=== PATIENT | female | born 1955 | race Caucasian/White ===

== ENCOUNTER 2016-06-03 09:34 | Outpatient (CLI) | payer BC ==
[~2016-06-03 09:34] MED LIST: LEVO500T20 PO
== END 2016-06-03 18:45 | disposition home or self-care (01) ==
LOC: SUS 09:34
PROVIDERS: ATTEND Specialist
DX: N18.3 Chronic kidney disease, stage 3 (moderate) (principal); N28.1 Cyst of kidney, acquired
CPT/HCPCS: 76770

== ENCOUNTER 2016-07-13 17:33 | Inpatient (IN) | payer BC ==
[~2016-07-13] VITALS: Ht 170.2 cm; Wt 100.2 kg
[2016-07-13] MEDS ORDERED: NACL 0.9% 1,000 ML IV ONE (17:37)
[2016-07-13] MEDS ORDERED: ONDANSETRON HCL 4 MG/2 ML VIAL IVP ONE (17:45)
[2016-07-13] MEDS ORDERED: KETOROLAC TROMETHAMINE 30 MG VIAL IVP ONE (17:45)
[2016-07-13 17:49] VITALS: BP_SYST 158
[2016-07-13 18:06] LABS: HEMATOCRIT 48.2 % (36-48); HEMOGLOBIN 16.1 g/dL (12.0-16.0); MEAN CORPUSCULAR HEMOGLOBIN 31 pg (27-31); MEAN CORPUSCULAR HGB CONC 34 % (32-36); MEAN CORPUSCULAR VOLUME 93 fL (79.0-98.0); PLATELET COUNT (AUTO) 254 K/uL (130-430); RED BLOOD CELL COUNT(AUTO) 5.19 MIL/uL (4.2-6.2); RED CELL DISTRIBUTION WIDTH 14.6 % (9.0-15.0); WHITE BLOOD COUNT (AUTO) 16.1 K/uL (4.8-10.8)
[2016-07-13 18:11] LABS: CALCIUM 9.1 mg/dL (8.4-11.0); CREATININE 1.57 mg/dL (0.55-1.30); POTASSIUM 3.4 mmol/L (3.5-5.1)
[2016-07-13 18:16] LABS: ALBUMIN 3.3 g/dL (3.4-4.8); TOTAL BILIRUBIN 0.3 mg/dL (0.0-1.0); TOTAL PROTEIN, SERUM 7.1 g/dL (6.4-8.3)
[2016-07-13 18:23] LABS: ATYPICAL LYMPHOCYTES % 0 % (0-0); BAND % (MANUAL) 0 % (0-6); BASOPHILS % (MANUAL) 0 % (0-2); EOSINOPHILS % (MANUAL) 0 % (0-7); LYMPHOCYTES % (MANUAL) 14 % (20-46); MONOCYTES % (MANUAL) 4 % (0-11)
[2016-07-13] MEDS ORDERED: NACL 0.9% 2,000 ML IV ONE (18:45)
[2016-07-13 19:00] VITALS: BP_SYST 127
[2016-07-13] MEDS ORDERED: LEVOFLOXACIN 500 MG/D5W 100 ML IV ONE (19:00)
[2016-07-13 19:24] VITALS: BP_SYST 127
[2016-07-13 19:25] VITALS: BP_SYST 127
[2016-07-13 19:46] LABS: BILIRUBIN,URINE NEGATIVE (NEGATIVE); BLOOD, URINE 3+ (NEGATIVE); CLARITY/URINE CLOUDY (CLEAR); COLOR,URINE RED (YELLOW); GLUCOSE,URINE NEGATIVE (NEGATIVE); KETONES,URINE NEGATIVE (NEGATIVE); LEUKOCYTE ESTERASE ,URINE NEGATIVE (NEGATIVE); NITRITE, URINE NEGATIVE (NEGATIVE); PROTEIN URINE 1+ (NEGATIVE); UROBILINOGEN,URINE 0.2 (0.2-1.0)
[2016-07-13 19:50] LABS: BACTERIA,URINE None Seen /HPF (None Seen); MUCUS,URINE None Seen /LPF (None Seen); RBC,URINE >100 /HPF (0-3); WBC,URINE 0-3 /HPF (0-3)
[2016-07-13] MEDS ORDERED: ACETAMINOPHEN 325 MG TABLET PO PRN (21:45)
[2016-07-13] MEDS ORDERED: MORPHINE 2 MG/ML INJ. SYRINGE IVP PRN (21:45)
[2016-07-13] MEDS ORDERED: MORPHINE 4 MG/ML INJ. SYRINGE IVP PRN (21:45)
[2016-07-13] MEDS ORDERED: PIPERACILLIN/TAZO 3.375/DEX-IS 50 ML IV SCH (21:45)
[2016-07-13] MEDS ORDERED: ZOSYN (PIPERACILLIN/TAZO) 3.375 GM in DEX-ISO (50ml) IV SCH (22:30)
[2016-07-13] MEDS: NACL 0.9% 1,000 ML IV SCH (22:59)
[2016-07-13] MEDS ORDERED: DIPHENHYDRAMINE INJ 50 MG/ML VIAL IVP ONE (23:45)
[2016-07-14] MEDS ORDERED: PIPERACILLIN/TAZOBACTAM 2.25 GM VIAL IV ONE (00:19)
[2016-07-14] MEDS: PIPERACILLIN/TAZO 2.25G/DEX-IS 50 ML IV SCH ×4 (00:32→17:32)
[2016-07-14 01:10] VITALS: BP_SYST 126
[2016-07-14 04:00] VITALS: BP_SYST 128
[2016-07-14 07:22] LABS: HEMATOCRIT 38.5 % (36-48); HEMOGLOBIN 13.4 g/dL (12.0-16.0); LYMPHOCYTES # (AUTO) 1.6 K/uL (1.0-5.5); LYMPHOCYTES % (AUTO) 13.6 % (20.5-51.5); MEAN CORPUSCULAR HEMOGLOBIN 32 pg (27-31); MEAN CORPUSCULAR HGB CONC 35 % (32-36); MEAN CORPUSCULAR VOLUME 92 fL (79.0-98.0); MONOCYTES # (AUTO) 0.6 K/uL (0.0-1.0); MONOCYTES % (AUTO) 5.5 % (1.7-9.3); NEUTROPHILS # (AUTO) 9.5 K/uL (1.8-7.7); NEUTROPHILS % (AUTO) 80.9 % (40.0-70.0); PLATELET COUNT (AUTO) 190 K/uL (130-430); RED BLOOD CELL COUNT(AUTO) 4.18 MIL/uL (4.2-6.2); RED CELL DISTRIBUTION WIDTH 14.9 % (9.0-15.0); WHITE BLOOD COUNT (AUTO) 11.7 K/uL (4.8-10.8)
[2016-07-14 07:36] LABS: ALBUMIN 2.5 g/dL (3.4-4.8); CREATININE 1.57 mg/dL (0.55-1.30); POTASSIUM 3.6 mmol/L (3.5-5.1); TOTAL BILIRUBIN 0.7 mg/dL (0.0-1.0); TOTAL PROTEIN, SERUM 5.7 g/dL (6.4-8.3)
[2016-07-14 08:00] VITALS: BP_SYST 132
[2016-07-14 08:32] LABS: INR 0.9 (0.8-1.2)
[2016-07-14] MEDS ORDERED: ONDANSETRON HCL 4 MG/2 ML VIAL IVP PRN (08:45)
[2016-07-14] MEDS ORDERED: ALBUTEROL SULFATE 0.083% 2.5 MG/3 ML VIAL.NEB INH PRN (08:45)
[2016-07-14] MEDS ORDERED: IPRATROPIUM BROM 0.5 MG/2.5 ML VIAL.NEB (ATROVENT) INH PRN (08:45)
[2016-07-14] MEDS: ALBUTEROL SULFATE 0.083% 2.5 MG/3 ML VIAL.NEB INH SCH ×4 (11:11→23:00)
[2016-07-14] MEDS: IPRATROPIUM BROM 0.5 MG/2.5 ML VIAL.NEB (ATROVENT) INH SCH ×4 (11:12→23:00)
[2016-07-14 12:00] VITALS: BP_SYST 137
[2016-07-14 16:00] VITALS: BP_SYST 130
[2016-07-14 20:05] VITALS: BP_SYST 153
[2016-07-14] MEDS: NACL 0.9% 1,000 ML IV SCH (21:00)
[2016-07-14] MEDS: LACTOBACILLUS RHAMNOSUS GG 1 CAP CAPSULE PO SCH (21:23)
[2016-07-15] MEDS: PIPERACILLIN/TAZO 2.25G/DEX-IS 50 ML IV SCH ×2 (00:26→05:15)
[2016-07-15 00:32] VITALS: BP_SYST 149
[2016-07-15] MEDS: ALBUTEROL SULFATE 0.083% 2.5 MG/3 ML VIAL.NEB INH SCH (03:00)
[2016-07-15] MEDS: IPRATROPIUM BROM 0.5 MG/2.5 ML VIAL.NEB (ATROVENT) INH SCH (03:00)
[2016-07-15 05:08] VITALS: BP_SYST 150
[2016-07-15 06:27] LABS: HEMOGLOBIN 14.8 g/dL (12.0-16.0); LYMPHOCYTES # (AUTO) 1.6 K/uL (1.0-5.5); LYMPHOCYTES % (AUTO) 24.8 % (20.5-51.5); MEAN CORPUSCULAR HEMOGLOBIN 31 pg (27-31); MEAN CORPUSCULAR HGB CONC 34 % (32-36); MEAN CORPUSCULAR VOLUME 92 fL (79.0-98.0); MONOCYTES # (AUTO) 0.3 K/uL (0.0-1.0); MONOCYTES % (AUTO) 4.9 % (1.7-9.3); NEUTROPHILS # (AUTO) 4.7 K/uL (1.8-7.7); NEUTROPHILS % (AUTO) 70.3 % (40.0-70.0); PLATELET COUNT (AUTO) 230 K/uL (130-430); RED BLOOD CELL COUNT(AUTO) 4.77 MIL/uL (4.2-6.2); RED CELL DISTRIBUTION WIDTH 14.6 % (9.0-15.0); WHITE BLOOD COUNT (AUTO) 6.6 K/uL (4.8-10.8)
[2016-07-15 06:52] LABS: ALBUMIN 3.1 g/dL (3.4-4.8); CALCIUM 8.9 mg/dL (8.4-11.0); CREATININE 1.18 mg/dL (0.55-1.30); POTASSIUM 3.1 mmol/L (3.5-5.1); TOTAL BILIRUBIN 0.6 mg/dL (0.0-1.0); TOTAL PROTEIN, SERUM 7.1 g/dL (6.4-8.3)
[2016-07-15] MEDS ORDERED: LORazepam 2 MG/ML VIAL IVP ONE (07:00)
[2016-07-15] MEDS ORDERED: IOHEXOL 50 ML IV ONE (07:36)
[2016-07-15] MEDS ORDERED: LR 1,000 ML IV SCH (07:53)
[2016-07-15] MEDS ORDERED: MEPERIDINE HCL/PF 25 MG/ML DISP.SYRIN IVP PRN ×2 (08:00)
[2016-07-15] MEDS ORDERED: HYDROmorphone 2 MG/ML VIAL IVP PRN ×2 (08:00)
[2016-07-15] MEDS ORDERED: HYDROmorphone 1 MG INJ. 1 MG/ML AMPUL IVP PRN (08:00)
[2016-07-15] MEDS ORDERED: KETOROLAC TROMETHAMINE 30 MG VIAL IVP PRN (08:00)
[2016-07-15] MEDS ORDERED: METOPROLOL TARTRATE 5 MG/5 ML VIAL ONE (09:00)
[2016-07-15] MEDS ORDERED: LR 1,000 ML IV.SOLN IV ONE (09:00)
[2016-07-15] MEDS ORDERED: ONDANSETRON HCL 4 MG/2 ML VIAL ONE (09:00)
[2016-07-15] MEDS ORDERED: MIDAZOLAM HCL 5 MG/5 ML VIAL ONE (09:00)
[2016-07-15] MEDS ORDERED: KETOROLAC TROMETHAMINE 30 MG VIAL ONE (09:00)
[2016-07-15] MEDS ORDERED: SEVOFLURANE 15 MIN GAS INH ONE (09:00)
[2016-07-15] MEDS ORDERED: PROPOFOL 200MG/ 20ML VIAL (DIPRIVAN) IV ONE (09:00)
[2016-07-15] MEDS ORDERED: fentaNYL CITRATE/PF 100 MCG/2 ML AMP ONE (09:00)
[2016-07-15 09:30] VITALS: BP_SYST 143
[2016-07-15] MEDS: LACTOBACILLUS RHAMNOSUS GG 1 CAP CAPSULE PO SCH (10:18)
[2016-07-15] MEDS ORDERED: POTASSIUM CHLORIDE 20 MEQ TAB.PRT.SR PO ONE (10:30)
[2016-07-15 11:56] VITALS: BP_SYST 163
[2016-07-15 11:58] VITALS: BP_SYST 163
== END 2016-07-15 12:21 | disposition home or self-care (01) | DRG 669 ==
LOC: SED 17:33 → SMU 18:46
PROVIDERS: ADMIT Internal Medicine Hospice and Palliative Medicine; ATTEND Internal Medicine Hospice and Palliative Medicine
PROC: 0T768DZ Dilation of Right Ureter with Intraluminal Device, Via Natural or Artificial Opening Endoscopic (ICD-10-PCS; 2016-07-15)
PROC: BT1D1ZZ Fluoroscopy of Right Kidney, Ureter and Bladder using Low Osmolar Contrast (ICD-10-PCS; 2016-07-15)
PROC: 0TC68ZZ Extirpation of Matter from Right Ureter, Via Natural or Artificial Opening Endoscopic (ICD-10-PCS; principal; 2016-07-15 07:30)
DX: N13.2 Hydronephrosis with renal and ureteral calculous obstruction (principal); I12.9 Hypertensive chronic kidney disease with stage 1 through stage 4 chronic kidney disease, or unspecified chronic kidney disease; F17.200 Nicotine dependence, unspecified, uncomplicated; J43.9 Emphysema, unspecified; N81.10 Cystocele, unspecified; D72.829 Elevated white blood cell count, unspecified; E27.9 Disorder of adrenal gland, unspecified; N18.3 Chronic kidney disease, stage 3 (moderate); Z90.721 Acquired absence of ovaries, unilateral; Z90.49 Acquired absence of other specified parts of digestive tract
CPT/HCPCS: 36415; 71010; 76000; 80053; 81000-TC; 82360; 83605; 85007; 85025; 85027; 85610-TC; 85730-TC; 87040-TC; 87081; 87086; 88300; 93005; 94640; 96365; 96375; 99285; C1758; C1769; C2625; J1885; J1956; J2060; J2250; J2270; J2405; J2543; J2704; J3010; J3490; J7030; J7120; Q9967

== ENCOUNTER 2016-07-21 16:06 | Outpatient (CLI) | payer BC | END 2016-07-21 18:50 | disposition home or self-care (01) | LOC: SRD 16:06 | PROVIDERS: ATTEND Specialist | DX: N20.0 Calculus of kidney (principal); Z96.0 Presence of urogenital implants | CPT/HCPCS: 74000-TC ==

== ENCOUNTER 2017-02-27 08:41 | Outpatient (CLI) | payer BC | END 2017-02-27 16:00 | disposition home or self-care (01) | LOC: SUS 08:41 → SDS 08:43 → EDSTATUS 09:00 → SUS 16:00 | PROVIDERS: ATTEND Internal Medicine | DX: E04.1 Nontoxic single thyroid nodule (principal) | CPT/HCPCS: 10022; 76942-TC; 88173; 88305; 88307; J7030 ==

== ENCOUNTER 2017-09-18 09:34 | Outpatient (CLI) | payer BC | END 2017-09-18 21:26 | disposition home or self-care (01) | LOC: SUS 09:34 | PROVIDERS: ATTEND Internal Medicine | DX: E04.2 Nontoxic multinodular goiter (principal); I12.9 Hypertensive chronic kidney disease with stage 1 through stage 4 chronic kidney disease, or unspecified chronic kidney disease; N18.3 Chronic kidney disease, stage 3 (moderate) | CPT/HCPCS: 76536-TC ==

== ENCOUNTER 2017-12-05 14:03 | Outpatient (CLI) | payer BC | END 2017-12-05 17:52 | disposition home or self-care (01) | LOC: SUS 14:03 | DX: N28.1 Cyst of kidney, acquired (principal); I12.9 Hypertensive chronic kidney disease with stage 1 through stage 4 chronic kidney disease, or unspecified chronic kidney disease; N18.3 Chronic kidney disease, stage 3 (moderate) | CPT/HCPCS: 76770 ==

== ENCOUNTER 2018-04-02 13:34 | Outpatient (CLI) | payer BC | END 2018-04-02 19:05 | disposition home or self-care (01) | LOC: SUS 13:34 | PROVIDERS: ATTEND Otolaryngology | DX: E04.2 Nontoxic multinodular goiter (principal) | CPT/HCPCS: 76536-TC ==